=== PATIENT | male | born 1960 | race Caucasian/White ===

== ENCOUNTER → 2020-10-09 15:20 | Outpatient (BNVA) | payer OTHER, BC, SELFPAY | PROVIDERS: PCP Physician Assistant Medical; Visit Provider Anesthesiology | DX: M50.30 Other cervical disc degeneration, unspecified cervical region (principal); M54.12 Radiculopathy, cervical region; G89.4 Chronic pain syndrome; Z79.899 Other long term (current) drug therapy | CPT/HCPCS: 99212 ==

== ENCOUNTER 2020-11-19 06:03 | Outpatient (REF) | payer OTHER, SELFPAY ==
--- NOTE | ~2020-11-19 | FL_ITS ---
EXAMINATION: XR FLUOROSCOPY WITH IMAGES CLINICAL INFORMATION: M54.2 - Cervicalgia COMPARISON: None. TECHNIQUE: Fluoroscopy performed by Amanda Ramsey NP. Fluoroscopy time: 0.4 minutes DAP: 4.27 Gycm2 Images: 1 FINDINGS: There is spinal needle seen overlying the posterior elements cervical thoracic region. FL/FL guidance in treatment room IMPRESSION: Fluoroscopy for pain management procedure.
== END 2020-11-19 06:04 | disposition home or self-care (01) ==
LOC: HO.RADIR 06:03
PROVIDERS: Visit Provider Anesthesiology
DX: M54.2 Cervicalgia (principal)
CPT/HCPCS: 62321; J1100; Q9967

== ENCOUNTER → 2020-12-23 11:34 | Outpatient (BNVA) | payer OTHER, SELFPAY | PROVIDERS: PCP Physician Assistant Medical; Visit Provider Anesthesiology ==

== ENCOUNTER 2020-12-27 08:39 | Outpatient (REF) | payer OTHER, SELFPAY | END 2020-12-27 08:40 | disposition home or self-care (01) | LOC: HO.MRI 08:39 | PROVIDERS: Visit Provider Anesthesiology | DX: Z13.89 Encounter for screening for other disorder (principal) ==

== ENCOUNTER → 2021-02-17 16:35 | Outpatient (BNVA) | payer OTHER, SELFPAY | PROVIDERS: PCP Physician Assistant Medical; Visit Provider Anesthesiology ==